=== PATIENT | female | born 1955 | race Caucasian/White ===

== ENCOUNTER 2022-10-25 11:17 | Emergency (ER) | payer MEDICARE, MEDICAID ==
[~2022-10-25] VITALS: Ht 162.6 cm; Wt 50.0 kg
[2022-10-25 13:18] LABS: BASOPHILS % 1.1 % (0.0-2.0); EOSINOPHILS % 1.1 % (0.0-5.0); HEMATOCRIT. 44.7 % (36.0-48.0); HEMOGLOBIN. 14.9 g/dL (12.0-16.0); LYMPHOCYTES % 35.8 % (20.0-50.0); MEAN CORPUSCULAR HEMOGLOBIN 29.9 pg (28.0-32.0); MEAN CORPUSCULAR VOLUME 89.7 fL (81.0-99.0); MEAN PLATELET VOLUME 9.2 fl (7.4-10.4); MONOCYTES % 4.4 % (2.0-8.0); NEUTROPHILS % 57.6 % (40.0-76.0); PLATELET 206 x1000/uL (130-400); RED BLOOD CELL COUNT 4.98 mill/uL (4.2-5.4); RED CELL DISTRIBUTION WIDTH 13.6 % (11.6-14.6)
[2022-10-25 13:26] LABS: CHLORIDE 106 mEq/L (98-107)
[2022-10-25 14:23] VITALS: BP 159/75
== END 2022-10-25 14:00 | disposition home or self-care (01) ==
LOC: ER 11:17
DX: Z13.9 Encounter for screening, unspecified (principal); I10 Essential (primary) hypertension; E11.9 Type 2 diabetes mellitus without complications; E78.00 Pure hypercholesterolemia, unspecified
CPT/HCPCS: 36415; 80053; 85025; 99283